=== PATIENT | female | born 1975 | race Caucasian/White ===

== ENCOUNTER 2017-03-13 15:12 | Inpatient (IN) | payer MEDICARE, OTHER ==
[~2017-03-13] VITALS: Ht 175.3 cm; Wt 112.7 kg
[~2017-03-13 15:12] MED LIST: ALPRAZOLAM1 M1 OR; AMBIEN10 MG OR; AMITRIPTYLIN25 MG PO; AMOXICILLIN500 MG OR; ANAPROX275 MG OR; ATIVAN1 MG PO; B-12 TR1000 MCG PO; BACTROBAN2 % EX; BENZTROPINE0.5 MG PO; BUSPAR5 MG PO; CIPRO500 MG OR; CYMBALTA60 MG PO; DILAUDID8 MG OR; FENOFIBRATE145 MG PO; FLEXERIL OR; FLEXERIL PO; GABAPENTIN100 MG PO; GABAPENTIN300 MG OR; GLIPIZIDE5 MG PO; KLONOPIN1 MG OR; LORTAB 10 OR; LORTAB 5-325 MG1 TAB PO; LORTAB5 OR; MEDDOSEPAK OR; MIRTAZAPINE15 MG PO; NAPROSYN500 MG PO; NEURONTIN300 MG OR; NORCO1 TAB OR; ORAJE1 MT; OXYCODONE15 MG OR; OXYCODONE30 MG OR; PERCOCET 10/31 COMBO PO; PREDNISONE10 MG PO; PROCTOFOAM HC10 GM RE; PROMETHAZINE25 MG OR; PROMETHAZINE50 MG OR; RESTORIL30 MG OR; SERAX10 MG OR; SEROQUEL100 MG OR; SEROQUEL100 MG PO; SEROQUEL25 MG OR; SEROQUEL50 MG OR; SOMA350 MG OR; TIZANIDINE4 MG OR; TOPROL XL OR; TOPROL XL25 MG OR; TRAZODONE100 MG OR; TRAZODONE150 MG OR; ULTRAM50 M1 OR; ULTRAM50 MG OR; VITAMIN D31000 UNI1 PO; XANAX XR1 MG OR; XANAX1 MG OR; ZANAFLEX4 M1 OR; ZANAFLEX4 MG OR; ZOLOFT50 MG OR; ZOLOFT50 MG PO; ZOVIRAX800 MG OR
[2017-03-14] VITALS (10 sets, daily range): BP systolic 121–149; BP diastolic 77–95
[2017-03-15] VITALS (8 sets, daily range): BP systolic 132–149; BP diastolic 68–91
[2017-03-15 06:34] LABS: HEMATOCRIT 39.2 % (37.0-47.0); HEMOGLOBIN 12.6 g/dl (12.0-16.0); IMMATURE GRANULOCYTES 0.8 % (0.0-1.0); MEAN CELL VOLUME 96.1 fL CALC (80.0-100.0); MEAN CORPUSCULAR HGB 30.9 pG CALC (26.0-32.0); MEAN CORPUSCULAR HGB CONC 32.1 g/L CALC (32.0-36.0); NEUT# 9.74 thou/uL (2.00-7.15); RED BLOOD COUNT 4.08 mill/uL (4.20-5.60)
[2017-03-15 08:15] LABS: ANION GAP 13 (6-22 (CALC)); BUN 10 mg/dL (7-17); BUN/CREATININE RATIO 13 (12-20 (CALC)); CALCIUM 8.1 mg/dL (8.4-10.2); CARBON DIOXIDE 26 mmol/l (22-30); CHLORIDE 101 mmol/l (95-108); CREATININE 0.8 mg/dL (0.5-1.0); GFR > 60 ML/MIN (>=60 (CALC)); GFR FOR AFR.AMER. > 60 ML/MIN (>=60 (CALC)); GLUCOSE 206 mg/dL (65-105); POTASSIUM 3.6 mmol/l (3.5-5.1); SODIUM 136 mmol/l (137-146)
[2017-03-16 04:00] VITALS: BP 135/80
[2017-03-16 05:26] LABS: HEMATOCRIT 33.3 % (37.0-47.0); HEMOGLOBIN 11.1 g/dl (12.0-16.0)
[2017-03-16 08:03] VITALS: BP 122/77
[2017-03-16] MEDS ORDERED: PERCOCET 10/31 COMBO PO (12:39)
[2017-03-16] MEDS ORDERED: XARELTO10 MG PO (12:39)
== END 2017-03-16 14:17 | disposition home health service (06) | DRG 470 ==
LOC: ENPENDDIS → MS2 03-14 11:47 → ICU 03-14 18:10 → MS2 03-15 19:05
PROVIDERS: Orthopaedic Surgery; ADMIT Internal Medicine; ATTEND Internal Medicine
PROC: 0SRC0J9 Replacement of Right Knee Joint with Synthetic Substitute, Cemented, Open Approach (ICD-10-PCS; principal; 2017-03-14)
PROC: 0QHB04Z Insertion of Internal Fixation Device into Right Lower Femur, Open Approach (ICD-10-PCS; 2017-03-14)
DX: M17.11 Unilateral primary osteoarthritis, right knee (principal); F32.9 Major depressive disorder, single episode, unspecified; M96.661 Fracture of femur following insertion of orthopedic implant, joint prosthesis, or bone plate, right leg; E11.9 Type 2 diabetes mellitus without complications; F17.210 Nicotine dependence, cigarettes, uncomplicated; E66.9 Obesity, unspecified; Y83.1 Surgical operation with implant of artificial internal device as the cause of abnormal reaction of the patient, or of later complication, without mention of misadventure at the time of the procedure; Y92.234 Operating room of hospital as the place of occurrence of the external cause; F41.9 Anxiety disorder, unspecified; E78.5 Hyperlipidemia, unspecified; J98.8 Other specified respiratory disorders; T40.2X5A Adverse effect of other opioids, initial encounter; T41.0X5A Adverse effect of inhaled anesthetics, initial encounter; Z68.35 Body mass index [BMI] 35.0-35.9, adult; Z01.818 Encounter for other preprocedural examination; M25.561 Pain in right knee
CPT/HCPCS: J1650; J2270; J2710

== ENCOUNTER 2017-06-11 22:32 | Emergency (ER) | payer MEDICARE, OTHER ==
[~2017-06-11] VITALS: Ht 175.3 cm; Wt 100.0 kg
[~2017-06-11 22:32] MED LIST changes: +XARELTO10 MG PO
[2017-06-11 23:33] LABS: HEMATOCRIT 38.3 % (37.0-47.0); HEMOGLOBIN 12.8 g/dl (12.0-16.0); IMMATURE GRANULOCYTES 0.5 % (0.0-1.0); MEAN CELL VOLUME 92.7 fL CALC (80.0-100.0); MEAN CORPUSCULAR HGB CONC 33.4 g/L CALC (32.0-36.0); NEUT# 6.83 thou/uL (2.00-7.15); RED BLOOD COUNT 4.13 mill/uL (4.20-5.60); RED CELL DISTRI WIDTH 14.6 % (11.5-15.5)
[2017-06-11 23:46] LABS: ALBUMIN 3.9 g/dL (3.2-5.0); ALKALINE PHOSPHATASE 71 u/l (38-126); ANION GAP 12 (6-22 (CALC)); BILIRUBIN, TOTAL 0.3 mg/dL (0.0-1.4); BUN 6 mg/dL (7-17); BUN/CREATININE RATIO 8 (12-20 (CALC)); CALCIUM 9.4 mg/dL (8.4-10.2); CARBON DIOXIDE 25 mmol/l (22-30); CHLORIDE 104 mmol/l (95-108); CREATININE 0.8 mg/dL (0.5-1.0); GFR > 60 ML/MIN (>=60 (CALC)); GFR FOR AFR.AMER. > 60 ML/MIN (>=60 (CALC)); GLUCOSE 86 mg/dL (65-105); POTASSIUM 3.5 mmol/l (3.5-5.1); SGOT/AST 20 u/l (14-36); SGPT/ALT 36 u/l (9-52); SODIUM 138 mmol/l (137-146); TOTAL PROTEIN 7.1 g/dL (6.3-8.2)
[2017-06-11] MEDS ORDERED: LISINOPRIL10 MG PO (23:56)
[2017-06-12] MEDS ORDERED: CEPHALEXIN500 MG PO (01:21)
[2017-06-12] MEDS ORDERED: LORTAB 10-325 M1 TAB PO (01:21)
[2017-06-12 01:47] VITALS: BP 138/79
== END 2017-06-12 01:44 | disposition home or self-care (01) ==
LOC: ED 22:32
PROVIDERS: Emergency Medicine
DX: S83.91XA Sprain of unspecified site of right knee, initial encounter (principal); F17.210 Nicotine dependence, cigarettes, uncomplicated; E11.9 Type 2 diabetes mellitus without complications; X58.XXXA Exposure to other specified factors, initial encounter; Z96.651 Presence of right artificial knee joint; M79.89 Other specified soft tissue disorders

== ENCOUNTER 2017-10-07 10:36 | Emergency (ER) | payer MEDICARE, OTHER ==
[~2017-10-07] VITALS: Ht 175.3 cm; Wt 100.0 kg
[~2017-10-07 10:36] MED LIST changes: +CEPHALEXIN500 MG PO; +LISINOPRIL10 MG PO; +LORTAB 10-325 M1 TAB PO
[2017-10-07] MEDS ORDERED: ZITHROMAX250 MG PO (11:23)
[2017-10-07] MEDS ORDERED: MOTRIN800 MG PO (11:23)
[2017-10-07 11:28] VITALS: BP 118/81
[2017-10-07] MEDS ORDERED: [UNRECOGNIZED DRUG - REMARK] PO (11:31)
== END 2017-10-07 11:35 | disposition home or self-care (01) ==
LOC: ED 10:36
DX: J40 Bronchitis, not specified as acute or chronic (principal); F17.210 Nicotine dependence, cigarettes, uncomplicated; R05 Cough; M54.9 Dorsalgia, unspecified; R09.89 Other specified symptoms and signs involving the circulatory and respiratory systems; R09.81 Nasal congestion

== ENCOUNTER 2019-03-25 09:38 | Day surgery (SDC) | payer MEDICARE, OTHER ==
[~2019-03-25 09:38] MED LIST changes: +CLONAZEP ODT1 MG PO; +CLONAZEPAM1 MG PO; +FLOVENT HF220 MCG/AC; +FOLIC ACID1 M1 PO; +FOLIC ACID1 MG PO; +GLIPIZIDE10 MG PO; +IMITREX25 MG PO; +MOBIC7.5 M1 PO; +MOTRIN800 MG PO; +PRAVASTATIN SOD20 MG PO; +PROAIR HFA108 MCG/AC; +TYLENOL325 M2; +VITAMIN B12; +VITAMIN D22000 UNIT PO; +ZITHROMAX250 MG PO; +[UNRECOGNIZED DRUG - REMARK] PO
[2019-03-25 10:22] LABS: BARBITURATES NEGATIVE (NEGATIVE); COCAINE NEGATIVE (NEGATIVE); METHADONE NEGATIVE (NEGATIVE); OXCYCODONE POSITIVE (NEGATIVE); TETRAHYDROCANNABIONOL POSITIVE (NEGATIVE); TRICYLIC ANTIDEPRESSANTS POSITIVE (NEGATIVE)
[2019-03-25 12:40] VITALS: BP 93/61
== END 2019-03-25 13:00 | disposition home or self-care (01) ==
LOC: ORM 09:38
PROVIDERS: ATTEND Surgery
PROC: 0JB70ZZ Excision of Back Subcutaneous Tissue and Fascia, Open Approach (ICD-10-PCS; principal; 2019-03-25)
PROC: 0JB70ZZ Excision of Back Subcutaneous Tissue and Fascia, Open Approach (ICD-10-PCS; 2019-03-25)
DX: D17.1 Benign lipomatous neoplasm of skin and subcutaneous tissue of trunk (principal); E11.9 Type 2 diabetes mellitus without complications; F17.210 Nicotine dependence, cigarettes, uncomplicated
CPT/HCPCS: J0131

== ENCOUNTER 2019-11-18 | Observation (INO) | payer MEDICARE, OTHER ==
--- NOTE | 2019-11-17 22:52 | NUR ---
BY WC TO ROOM
--- NOTE | 2019-11-17 23:25 | NUR ---
IV STARTED AND BREATHING TREATMENT STARTED. PT GIVEN SOLUMEDROL AND LABS AND FLU SWAB OBTAINED. PT C/O PAIN. NOTIFIED.
[2019-11-17 23:49] LABS: HEMATOCRIT 42.3 % (37.0-47.0); HEMOGLOBIN 14.4 g/dl (12.0-16.0); IMMATURE GRANULOCYTES 0.2 % (0.0-5.0); MEAN CELL VOLUME 86.7 fL CALC (80.0-100.0); MEAN CORPUSCULAR HGB 29.5 pG CALC (26.0-32.0); NEUT# 4.97 thou/uL (2.00-7.15); RED BLOOD COUNT 4.88 mill/uL (4.20-5.60); RED CELL DISTRI WIDTH 13.4 % (11.5-15.5)
[2019-11-18] LABS: HCG SERUM/URINE (NEG/POS) NEGATIVE (NEGATIVE)
[2019-11-18 00:02] LABS: ALBUMIN 3.7 g/dL (3.2-5.0); ALKALINE PHOSPHATASE 103 u/l (38-126); ANION GAP 14 (6-22 (CALC)); BILIRUBIN, TOTAL 0.3 mg/dL (0.0-1.4); BUN 12 mg/dL (7-17); BUN/CREATININE RATIO 21 (12-20 (CALC)); CARBON DIOXIDE 26 mmol/l (22-30); CHLORIDE 101 mmol/l (95-108); CREATININE 0.6 mg/dL (0.5-1.0); GFR > 60 ML/MIN (>=60 (CALC)); GFR FOR AFR.AMER. > 60 ML/MIN (>=60 (CALC)); POTASSIUM 3.7 mmol/l (3.5-5.1); SGOT/AST 18 u/l (14-36); SODIUM 137 mmol/l (137-146)
--- NOTE | 2019-11-18 01:33 | NUR ---
PT UP TO BR. RETURNED TO BED. ADVISED OF ADMISSION. FAMILY HOME. PT GIVEN ANOTHER BLANKET. LIGHTS DIMMED. 02 SAT 92% ON RA SO PT PLACED ON NC @ 2 LPM. SAT INCREASED TO 96% ON NC
--- NOTE | 2019-11-18 02:26 | NUR ---
PT RELOCATED TO ROOM # 15 FOR MED SURGE ADMIT HOLD
--- NOTE | 2019-11-18 04:00 | NUR ---
PT GIVEN TUSSINEX FOR COUGH. CRANBERRY JUICE AND H2O GIVEN TO PT FOR HYDRATION.
--- NOTE | 2019-11-18 05:15 | NUR ---
PT SLEEPING. RESP EASY REG. VSS.
[2019-11-18] MEDS ORDERED: AMBIEN10 MG PO (07:06)
--- NOTE | 2019-11-18 07:10 | NUR ---
REPORT FROM LEILANI LAWS. MS NURSE WILL CALL BACK FOR REPORT.
--- NOTE | 2019-11-18 07:30 | NUR ---
REPORT CALLED TO COMPA BOURNE.
--- NOTE | 2019-11-18 07:50 | NUR ---
Admission Note Report Given to: COMPA BOURNE Transported by: Wheelchair X Stretcher Transported with: X Nurse X Transporter X Patent IV O2 Sandblasting Supervisor PT TO ROOM 269, CARE RELINQUISHED TO COMPA BOURNE.
--- NOTE | 2019-11-18 07:55 | NUR ---
PT ARRIVED TO THE UNIT,. VIA BED. IV SITE INTACT. AT 0810 CAUGHT PT TAKING HER OWN MEDICATION. EXPLAINED ABOUT NOT TAKING HER OWN DUE TO OVER MEDICATING. VERBALIZED UNDERSTANDING. TOLD THIS CUSTOMER SERVICE ADMINISTRATOR "THE DR TOLD ME TO TAKE IT, AND HAD MY GO HOME AND BRING THEM BACK " CONTINUE TO OBSERVE AND MONITOR. SPOKE WITH ER STAFF RE: PT STATING " I WAS TOLD IT WAS OK TO TAKE [place] NEDS". WAS INFORMED THAT THE DR TOLD HER LAST NIGHT DUE TO BEING LATE, BUT NOT FOR THIS AM.
[2019-11-18 08:40] VITALS: BP 95/56
--- NOTE | 2019-11-18 08:40 | NUR ---
ASSESSMENT IS COMPLETED: PT IN BED, BREATH SOUNDS ARE CLEAR IN UPPER AND WHEEZING , HR IS REG,PULSES ARE STRONG X4, ABD IS SOFT WITH ACTIVE BS. IV SITE IS FREE FROM REDNESS OR EDEMA.
--- NOTE | 2019-11-18 12:44 | NUR ---
PT IS RELAXING IN BED, SPOUSE IN THE ROOM. IV SITE IS FREE FROM REDNESS OR EDEMA.
[2019-11-18 15:43] VITALS: BP 107/76
--- NOTE | 2019-11-18 17:45 | NUR ---
INSULIN GIVEN FOR BS OF 401 AND ALSO GAVE HER THE GLIPIZIDE PO. AND PT WAS ON THE PHONE HOLLERING AT A FAMILY MEMBER " I DON'T CARE IF THEY HAVE AN EMERGENCY,I DON'T WANT TO BE IN A DIABETIC COMA BECAUSE NO ONE IS DOING ANYTHING ABOUT IT. IF THEY KNEW THAT THE BREATHING TREATMENT AND SOLUMEDROL WAS GOING TO RAISE THIS THEN TAKE CARE OF IT BEFORE" APRIL (ADEN) WENT TO SPEAK TO THE PT DUE TO HER SCREAMING ON THE PHONE.
--- NOTE | 2019-11-18 18:27 | NUR ---
PT WANTED TO SIGN OUT IBAN UPSET BECAUSE OF THE WAY SHE WAS TALKED TO. EXPLAINED RE: IBAN WORKS THAT SHE WANTED TO LEAVE , AND WAS ABLE TO GIVE HER THE PHYSICIANS NAME AND WARD AIDE DUE TO ASKING FOR IT.
== END 2019-11-18 18:35 | disposition left against medical advice (07) ==
PROVIDERS: ADMIT Family Medicine
DX: J44.1 Chronic obstructive pulmonary disease with (acute) exacerbation (principal); J44.0 Chronic obstructive pulmonary disease with (acute) lower respiratory infection; J20.9 Acute bronchitis, unspecified; I10 Essential (primary) hypertension; E11.9 Type 2 diabetes mellitus without complications; F41.8 Other specified anxiety disorders; F43.10 Post-traumatic stress disorder, unspecified; E78.5 Hyperlipidemia, unspecified; F17.200 Nicotine dependence, unspecified, uncomplicated; Z79.84 Long term (current) use of oral hypoglycemic drugs; Z87.820 Personal history of traumatic brain injury
CPT/HCPCS: G0378; J1650

== ENCOUNTER 2020-07-23 11:26 | Emergency (ER) | payer MEDICARE, OTHER ==
[~2020-07-23] VITALS: Ht 175.3 cm; Wt 88.0 kg
[~2020-07-23 11:26] MED LIST changes: +AMBIEN10 MG PO
[2020-07-23] MEDS ORDERED: ATORVASTATIN CA20 MG PO (11:48)
[2020-07-23] MEDS ORDERED: DOXEPIN HCL25 MG PO (11:48)
[2020-07-23] MEDS ORDERED: VITAMIN B-121000 MCG PO (11:49)
[2020-07-23] MEDS ORDERED: VITAMIN D2000 UNIT PO (11:49)
[2020-07-23] MEDS ORDERED: GABAPENTIN300 M2 PO (11:49)
[2020-07-23] MEDS ORDERED: GENTAK0.32 OS (11:55)
[2020-07-23 12:00] VITALS: BP 132/86
== END 2020-07-23 12:00 | disposition home or self-care (01) ==
LOC: ED 11:26
DX: H10.9 Unspecified conjunctivitis (principal); H54.61 Unqualified visual loss, right eye, normal vision left eye; E11.9 Type 2 diabetes mellitus without complications; F17.210 Nicotine dependence, cigarettes, uncomplicated; Z79.84 Long term (current) use of oral hypoglycemic drugs

== ENCOUNTER 2020-08-12 15:05 | Observation (INO) | payer MEDICARE, OTHER ==
[~2020-08-12] VITALS: Ht 175.3 cm; Wt 82.4 kg
[~2020-08-12 15:05] MED LIST changes: +ATORVASTATIN CA20 MG PO; +DOXEPIN HCL25 MG PO; +GABAPENTIN300 M2 PO; +GENTAK0.32 OS; +VITAMIN B-121000 MCG PO; +VITAMIN D2000 UNIT PO
--- NOTE | 2020-08-12 15:06 | NUR ---
AMBULATED TO ROOM WITH STEADY GAIT FOR BEDSIDE TRIAGE
[2020-08-12 15:49] LABS: HEMATOCRIT 46.3 % (37.0-47.0); HEMOGLOBIN 15.7 g/dl (12.0-16.0); IMMATURE GRANULOCYTES 0.3 % (0.0-5.0); MEAN CELL VOLUME 86.2 fL CALC (80.0-100.0); MEAN CORPUSCULAR HGB 29.2 pG CALC (26.0-32.0); MEAN CORPUSCULAR HGB CONC 33.9 g/dL CAL (32.0-36.0); NEUT# 10.14 thou/uL (2.00-7.15); RED BLOOD COUNT 5.37 mill/uL (4.20-5.60); RED CELL DISTRI WIDTH 13.1 % (11.5-15.5)
[2020-08-12 15:51] LABS: GFR > 60 ML/MIN (>=60 (CALC)); GFR FOR AFR.AMER. > 60 ML/MIN (>=60 (CALC))
[2020-08-12 16:17] LABS: C-REACTIVE PROTEIN 2.7 mg/dL (0-0.9)
--- NOTE | 2020-08-12 16:18 | NUR ---
The patient is waiting for her results and possible admission.
[2020-08-12 16:32] LABS: ALKALINE PHOSPHATASE 133 u/l (38-126); ANION GAP 16 (6-22 (CALC)); BUN 14 mg/dL (7-17); BUN/CREATININE RATIO 20 (12-20 (CALC)); CARBON DIOXIDE 22 mmol/l (22-30); CHLORIDE 100 mmol/l (95-108); CREATININE 0.7 mg/dL (0.5-1.0); GFR > 60 ML/MIN (>=60 (CALC)); GFR FOR AFR.AMER. > 60 ML/MIN (>=60 (CALC)); POTASSIUM 3.8 mmol/l (3.5-5.1); SGOT/AST 25 u/l (14-36); SODIUM 135 mmol/l (137-146); TOTAL PROTEIN 8.1 g/dL (6.3-8.2)
[2020-08-12 16:39] LABS: ALBUMIN 4.5 g/dL (3.2-5.0); BILIRUBIN, TOTAL 0.5 mg/dL (0.0-1.4)
--- NOTE | 2020-08-12 16:50 | NUR ---
The patient has blood transfusing, he is not having any issues.
--- NOTE | 2020-08-12 17:43 | NUR ---
Report given to Nell.
--- NOTE | 2020-08-12 18:00 | NUR ---
PT ARRIVED TO [facility] ROOM 272 VIA WHEELCHAIR IN STABLE CONDITION ACCOMPAINED BY ER STAFF. PT AMBULATED IN WITH STEADY GAIT FROM WHEELCHAIR TO BED. PT IS A/O X3 . ASSESSMENT AND VITALS COMPLETED. RESPIRATIONS ARE EVEN AND UNLABORED WITH NO SIGNS OF DISTRESS NOTED ON 2L NC. LUNG SOUND SARE COURSE.PT PRESENTS WITH NON PRODUCTIVE COUGH. HEART RHYTHM IS NORMAL WITH TELE IN PLACE. BOWEL SOUNDS ARE HYPOACTIVE, LAST REPORTED BM 08/12/20. RADIAL AND PEDAL PULSES ARE STRONG WITH NORMAL CAPILLARY REFILL. #20 IN RAC RUNNING WITH GAMINSIDE AT THIS TIME. SITE APPEARS HEALTHY AND PATENT. PT COMPLAINS OF 5/10 MID ABCK PAIN. ACCUCHECK OBTAINED RESUTLING IN 114. PT INFORMS WRITTER OFF ALLERGY TO BEE VENOM, METFORMIN AND ASPIRING, ALLERGY BAND APPLIED. PT STATES SHE CAME TO ER FOR SOB AND EAR ACHE. PT ORIENTED TO ROOM AND CALL LIGHT SYSTEM. ALL SAFETY PRECAUTIONS ARE IN PLACE WITH CALL LIGHT IN REACH. WILL CONTINUE TO MONITOR,
[2020-08-12 18:22] LABS: URINE BILIRUBIN - DIPSTICK NEGATIVE (NEGATIVE); URINE BLOOD DIPSTICK SMALL (NEGATIVE); URINE COLOR YELLOW; URINE GLUCOSE - DIPSTICK NEGATIVE (NEGATIVE); URINE KETONE NEGATIVE (NEGATIVE); URINE LEUK ESTERASE NEGATIVE (NEGATIVE); URINE NITRITE - DIPSTICK NEGATIVE (Negative); URINE PROTEIN - DIPSTICK NEGATIVE (NEG-TRACE); URINE SPECIFIC GRAVITY 1.015; URINE UROBILINOGEN - DIPSTICK 0.2 E.U./dL (0.2)
[2020-08-12 18:30] VITALS: BP 113/78
[2020-08-12 18:35] LABS: URINE MUCUS FEW hpf (NONE-FEW); URINE SQUAMOUS EPITHELIAL CELL FEW EPI/hpf (0-FEW)
--- NOTE | 2020-08-12 20:00 | NUR ---
PATIENT ALERT, VERBAL, ABLE TO MAKE NEEDS KNOWN. ABLE TO TOLERATE MEDS WELL WHOLE. CONT OF BOWEL AND BLADDER--ABLE TO AMBULATE TO AND FROM BR IN ROOM INDEPENDENTLY. OUT OF BED DAILY IN ROOM AD MAGALIS. REQUESTED PAIN MEDS FOR C/OS MID TO LOWER BACK PAIN--NOTHING ORDERED--CALL PLACED TO MD--NEW ORDERS FOR TORADOL 15G IV Q 8 HOURS PRN--GIVEN @ HS WITH POSITIVE EFFECT. PATIENT DOES HAVE ALLERGY TO ASA--MD IS AWARE AND IN AGREEMENT WITH CURRENT MEDICATION. TELEMETRY IN PLACE--SR @ 96. PIV SITE PATENT TO RIGHT AC--FLUSHES WELL--SITE WITHOUT ANY S/S OF INFECTION NOTED. CONT ON IV ABT THERAPY RELATED TO SUSPECTED INFECTION WITH NO SIDE EFFECTS NOTED--AFEBRILE. O2 @ 2L/MIN BN--NO S/S OF RESP DISTRESS NOTED--HAS A NON-PRODUCTIVE CONGESTED COUGH. WILL CONT TO MONITOR FOR ANY FURTHER CHANGES.
--- NOTE | 2020-08-13 | NUR ---
PATIENT EXTREMELY RESTLESS SINCE LAST ROUNDING--STATES HE SLEEPING PILL ISNT WORKING--THIS FROG SHAKER TRIED RELAXATION TECHNIQUES--DIMMING THE LIGHTS--PERSUADING HER TO TURN THE TV OFF AND PUT HER PHONE DOWN--PATIENT DID FALL ASLEEP FOR APPROX 2 HOURS--THEN WAS BACK AWAKE--NO DISTRESS--QUESTIONING ABOUT HER LABS AND WHAT THE VALUES MAY OR MAY NOT MEAN FOR HER STAY HERE. ENCOURGAED PATIENT TO RELAX AND GET SOME REST AND SHE COULD SPEAK WITH HER MD IN THE AM TO FURTHER ANSWER HER QUESTIONS. PIV SITE PATENT TO RIGHT AC--FLUSHES WELL--SITE UNREMARKABLE. REMAINS AFEBRILE--CONT TO HAVE A NON-PRODUCTIVE CONGESTED COUGH--OTHERWISE HAS NO COMPLAINTS. WILL CONT TO MONITOR FOR AND FURTHER CHANGES AND PROMOTE RELAXATION MUCH POSSIBLE.
[2020-08-13 00:20] VITALS: BP 93/63
--- NOTE | 2020-08-13 00:31 | NUR ---
UPON ROUNDS AT THIS TIME, PATIENT STATES SHE IS HAVING HEART PALPITATIONS AND THINKS IT MAY BE HER ANXIETY--SHE STATES SHE USED TO SEE A PSYCHIATRIST, HOWEVER, HASNT SEEN ONE IN THE LAST FOUR YEARS--ALSO STATES SHE USED TO TAKE "KLONOPIN 1MG FOUR TIMES A DAY." B/P 93/63 P 100--CALL PLACED TO DERAY TO SEE IF MAYBE HE WANTS LABS TO R/O ANYTHING CARDIAC OR TO PLACE HER ON SOMETHING FOR HER ANXIETY--AWAITING RETURN CALL AT THIS [facility].
[2020-08-13 03:57] VITALS: BP 107/66
--- NOTE | 2020-08-13 04:00 | NUR ---
PATIENT RESTING SOUNDLY IN BED WITH EYES CLOSED AT THIS TIME. B/P 107/67 P 97--VOICES NO EPISODES OF ANXIETY--HAS BEEN SLEEPING WELL SINCE LAST ROUND. CALL BACK NEVER RECEIVED FROM MD--WILL F/U LATER IN THE AM FOR FURTHER INSTRUCTIONS. TELEMETRY IN PLACE--SINUS RHYTHM @ 92. PIV SITE PATENT TO RIGHT AC--FLUSHES WELL--SITE UNREMARKABLE. REMAINS AFEBRILE. NO APPARENT DISTRESS NOTED. WILL CONT TO MONITOR FOR ANY FURTHER CHANGES.
--- NOTE | 2020-08-13 05:30 | NUR ---
CALLED TO PATIENT ROOM BY BINU WHO STATES SHE WOKE UP AND THE ROOM IS SPINNING--PATIENT IS TEARFUL AND EXTREMELY ANXIOUS AT THIS POINT. ATTEMPTED TO CALL MD ONCE AGAIN TO OBTAIN FURTHER INSTRUCTIONS--THIS FACILITIES DIRECTOR WAS ABLE TO REACH MD--NEW ORDERS FOR ATIVAN 0.5MG PO TIMES 1 NOW--MAY REPEAT IN ONE HOUR IF NEEDED--ALSO SPOKE WITH MD ABOUT THE FACT THAT PATIENT HAS A HISTORY OF DIABETES YET NO ORDERS FOR SSI INSULIN OF ACCUCHECKS AT ANY TIME--NEW ORDERS FOR FSBS QID WITH LOW DOSE SLIDING SCALE GIVEN WELL. WILL CONT TO MONITOR FOR ANY FURTHER CHANGES.
--- NOTE | 2020-08-13 07:00 | NUR ---
SHIFT CHANGE REPORT, PT AWAKE ALERT AND ORIENTED RESTING IN BED, C/O ACHING BACK PAIN @ 8/10, O2 @ 2L VIA NC IN PLACE, TELEMONITOR IN PLACE, ALL NEEDS ADDRESSED, CALL MYERS IN REACH.
[2020-08-13 08:16] VITALS: BP 101/66
[2020-08-13 10:57] VITALS: BP 112/75
--- NOTE | 2020-08-13 11:01 | NUR ---
NEB TX NOT GIVEN PENDING COVID SWAB TEST RESULTS.
--- NOTE | 2020-08-13 11:18 | NUR ---
MEDICAL TEAM ROUNDED, DISCUSSED PLAN OF CARE AND WROTE ORDERS. PT CONCERNED ABOUT HAVING A PANIC ATTACK STATING SHE HAD ONE THIS AM, DEBURRER NOTIFIED AND STATED HE WILL ADDRESS CONCERNS.
[2020-08-13 15:10] VITALS: BP 115/77
--- NOTE | 2020-08-13 15:58 | NUR ---
RELAXING IN BED WATCHING TV, C/O HEARTBURN AND INFORMED WILL NOTIFY MD OF CONCERN, ALL OTHER NEEDS ADDRESSED, WILL CONTINUE TO MONITOR.
[2020-08-13 19:23] VITALS: BP 123/81
--- NOTE | 2020-08-13 19:28 | NUR ---
REPORT FROM TIANA DUKE. PT NOTED SITTING UP IN BED. ALERT AND ORIENTED X4. PT VERY ANXIOUS WITH RAPID SHALLOW RESPIRATIONS NOTED. 02 SAT 96% ON RA. PT ENCOURAGED TO DEEP BREATH AND RELAXATION TECHNIQUES OFFERED, EFFECTIVE AT THIS TIME. INHALER PROVIDED BY OFF GOING NURSE JUST PRIOR TO ENTERING ROOM. PT STATES WAS JUST OOB AMBULATING IN ROOM TO BATHROOM AND BECAME SOB. PT MORE CALM AT THIS TIME. DISCUSSED POC. PT VERBALIZED UNDERSTANDING. IV SITE APPEARS HEALTHY, REINFORCED WITH COBAN AT THIS TIME. DAIRY NUTRITION CONSULTANT IN PLACE. NO CURRENT WANTS OR NEEDS. CALL LIGHT WITHIN REACH. WILL CONTINUE TO MONITOR.
--- NOTE | 2020-08-13 20:03 | NUR ---
FOOD AND SODA DELIVERED BY VISITOR TO PT AT THIS TIME.
[2020-08-14 00:09] VITALS: BP 115/72
--- NOTE | 2020-08-14 00:09 | NUR ---
PT RESTING IN BED WITH EYES CLOSED. NO APPARENT DISTRESS NOTED. RESPIRATIONS EVEN AND UNLABORED. VSS. ENDOCRINOLOGY TEACHER IN PLACE. CALL LIGHT WITHIN REACH. WILL CONTINUE TO MONITOR.
--- NOTE | 2020-08-14 04:31 | NUR ---
PT MEDICATED FOR BACK PAIN 5-10. NO APPARENT RESPIRATORY DISTRESS NOTED. RESPIRATION EVEN AND UNLABORED. NO OTHER CURRENT WANTS OR NEEDS. CALL LIGHT WITHIN REACH. WILL CONTINUE TO MONITOR.
[2020-08-14 04:56] LABS: MEAN CELL VOLUME 87.5 fL CALC (80.0-100.0); MEAN CORPUSCULAR HGB 28.9 pG CALC (26.0-32.0); RED BLOOD COUNT 4.4 mill/uL (4.20-5.60)
[2020-08-14 04:59] VITALS: BP 110/72
[2020-08-14 05:03] LABS: HEMATOCRIT 38.5 % (37.0-47.0); HEMOGLOBIN 12.7 g/dl (12.0-16.0)
[2020-08-14 05:16] LABS: ALBUMIN 3.7 g/dL (3.2-5.0); ALKALINE PHOSPHATASE 110 u/l (38-126); BUN 23 mg/dL (7-17); BUN/CREATININE RATIO 37 (12-20 (CALC)); CHLORIDE 98 mmol/l (95-108); CREATININE 0.6 mg/dL (0.5-1.0); GFR > 60 ML/MIN (>=60 (CALC)); GFR FOR AFR.AMER. > 60 ML/MIN (>=60 (CALC)); MAGNESIUM 1.7 mg/dL (1.6-2.3); SGOT/AST 13 u/l (14-36); SODIUM 133 mmol/l (137-146)
[2020-08-14 05:45] LABS: ANION GAP 12 (6-22 (CALC)); BILIRUBIN, TOTAL 0.2 mg/dL (0.0-1.4); CARBON DIOXIDE 28 mmol/l (22-30); POTASSIUM 4.7 mmol/l (3.5-5.1); TOTAL PROTEIN 6.4 g/dL (6.3-8.2)
--- NOTE | 2020-08-14 07:05 | NUR ---
REPORT RECEIVED FROM COMPA BURRELL;PT APPEARS TO BE SLEEPING IN SEMI FOWLERS POSITION;NO S/S OF DISTRESS NOTED;RESPIRATIONS EVEN AND UNLABORED ON RA;TELE MONITORING IN PLACE;ALL SAFETY PRECAUTIONS REMAIN IN PLACE WITH BED IN THE LOWEST POSITION AND CALL LIGHT IN REACH;WILL CONTINUE TO MONITOR
[2020-08-14 08:14] VITALS: BP 120/74
--- NOTE | 2020-08-14 08:15 | NUR ---
PT RESTING IN SEMI FOWLERS POSITION,A&O X3;VS OBTAINED AND ASSESSMENT COMPLETED;PT DENIES ANY CURRENT PAIN OR DISCOMFORTS,PAIN SCALE AND REPORTING EDUCATED;RESPIRATIONS SHALLOW ON RA,CLEAR/DIMINISHED LUNG SOUNDS;EXERTIONAL SOB NOTED AT TIMES;ABDOMEN SOFT ON PALPATION AND ACTIVE IN ALL 4 QUADRANTS;STONG PEDAL PULSES;SKIN INTACT;TELE MONITORING IN PLACE;#20G TO RAC FLUSHED AND PATENT,SITE APPEARS HEALTHY AND ABX STARTED AT THIS TIME;ACCUCHECK 366, PT COVERED WITH SLIDING SCALE NOVOLOG PER ORDER;PT DENIES ANY ADDITIONAL NEEDS AT THIS TIME AND IS ENCOURAGED TO CALL FOR ASSISTANCE IF NEEDED;FALL PRECAUTIONS IN PLACE WITH BED IN THE LOWEST POSITION AND CALL LIGHT IN REACH;WILL CONTINUE TO MONITOR
--- NOTE | 2020-08-14 08:49 | NUR ---
AT BEDSIDE DISCUSSING POC WITH PT.
[2020-08-14] MEDS ORDERED: PROAIR HFA108 MCG/AC IN (09:41)
[2020-08-14] MEDS ORDERED: FLOVENT HF220 MCG/AC IN (09:43)
[2020-08-14] MEDS ORDERED: MEDDOSEPAK PO (09:52)
[2020-08-14] MEDS ORDERED: ZITHROMAX Z-PA250 MG PO (09:52)
--- NOTE | 2020-08-14 10:20 | NUR ---
ALL DISCHARGE INSTRUCTIONS PROVIDED AT THIS TIME;PT INSTRUCTED TO CAR DROPPER RX FOR ZITHRO AND PREDNISONE AT PHARMACY;COMPLETE DOSE OF STEROIDS AND ABX,STOP SMOKING,MONITOR BLOOD SUGAR AND FOLLOW UP WITH PCP TODAY;PT VERBALIZES UNDERSTANDING AND DENIES ANY ADDITIONAL QUESTIONS OR NEEDS;IV SITE REMOVED WITH CATHETER INTACT AND TELE MONITORING D/C;WHEELCHAIR TO BE PROVIDED FOR D/C HOME;PT TO TRANSPORT SELF HOME;WILL CONTINUE TO MONITOR
--- NOTE | 2020-08-14 10:41 | NUR ---
Discharge instructions given. Patient verbalizes understanding of same. Discharged in stable condition via AMBULATION to Home with *Other. All belongings sent with pt. [facility]/C HOME, PT REFUSED WHEELCHAIR.ALL BELONGINGS LEFT WITH PT.PT TO TRANSPORT SELF HOME.
== END 2020-08-14 10:41 | disposition home or self-care (01) ==
LOC: ED 15:05 → ED-I 16:41 → ED 17:04 → MS2 17:05
PROVIDERS: Family Medicine; Nurse Practitioner; ADMIT Internal Medicine; ATTEND Internal Medicine
DX: J44.1 Chronic obstructive pulmonary disease with (acute) exacerbation (principal); E87.2 Acidosis; D72.829 Elevated white blood cell count, unspecified; H92.13 Otorrhea, bilateral; E11.65 Type 2 diabetes mellitus with hyperglycemia; E11.40 Type 2 diabetes mellitus with diabetic neuropathy, unspecified; F41.9 Anxiety disorder, unspecified; F32.9 Major depressive disorder, single episode, unspecified; F43.10 Post-traumatic stress disorder, unspecified; E78.5 Hyperlipidemia, unspecified; F17.210 Nicotine dependence, cigarettes, uncomplicated; Z79.84 Long term (current) use of oral hypoglycemic drugs; Z87.820 Personal history of traumatic brain injury; Z20.828 Contact with and (suspected) exposure to other viral communicable diseases
CPT/HCPCS: A4627; G0378; J1650; Q9967

== ENCOUNTER 2021-01-30 14:10 | Emergency (ER) | payer MEDICARE, OTHER ==
[~2021-01-30] VITALS: Ht 175.3 cm; Wt 85.0 kg
[~2021-01-30 14:10] MED LIST changes: +FLOVENT HF220 MCG/AC IN; +MEDDOSEPAK PO; +PROAIR HFA108 MCG/AC IN; +ZITHROMAX Z-PA250 MG PO
[2021-01-30] MEDS ORDERED: ANXIETY (14:34)
[2021-01-30 14:35] LABS: HEMATOCRIT 43.1 % (37.0-47.0); IMMATURE GRANULOCYTES 0.2 % (0.0-5.0); MEAN CELL VOLUME 84.5 fL CALC (80.0-100.0); MEAN CORPUSCULAR HGB CONC 34.3 g/dL CAL (32.0-36.0); NEUT# 7.49 thou/uL (2.00-7.15); RED BLOOD COUNT 5.1 mill/uL (4.20-5.60)
[2021-01-30] MEDS ORDERED: NOVOLIN N100 UNIT/1 SC (14:35)
[2021-01-30 14:37] LABS: HEMOGLOBIN 14.8 g/dl (12.0-16.0)
[2021-01-30 15:09] LABS: URINE BILIRUBIN - DIPSTICK NEGATIVE (NEGATIVE); URINE BLOOD DIPSTICK TRACE-LYSED (NEGATIVE); URINE COLOR YELLOW; URINE GLUCOSE - DIPSTICK NEGATIVE (NEGATIVE); URINE KETONE NEGATIVE (NEGATIVE); URINE LEUK ESTERASE NEGATIVE (NEGATIVE); URINE NITRITE - DIPSTICK NEGATIVE (Negative); URINE PH 6.5 (4.5-8.0); URINE PROTEIN - DIPSTICK NEGATIVE (NEG-TRACE); URINE UROBILINOGEN - DIPSTICK 0.2 E.U./dL (0.2)
[2021-01-30 15:10] LABS: ALBUMIN 4.4 g/dL (3.2-5.0); ALKALINE PHOSPHATASE 123 u/l (38-126); BUN 12 mg/dL (7-17); BUN/CREATININE RATIO 17 (12-20 (CALC)); CARBON DIOXIDE 28 mmol/l (22-30); CHLORIDE 99 mmol/l (95-108); CREATININE 0.7 mg/dL (0.5-1.0); GFR > 60 ML/MIN (>=60 (CALC)); GFR FOR AFR.AMER. > 60 ML/MIN (>=60 (CALC)); SGOT/AST 18 u/l (14-36); SODIUM 138 mmol/l (137-146); TOTAL PROTEIN 7.6 g/dL (6.3-8.2)
[2021-01-30 15:15] LABS: ANION GAP 14 (6-22 (CALC)); BILIRUBIN, TOTAL 0.6 mg/dL (0.0-1.4)
[2021-01-30 15:23] LABS: MYOGLOBIN 20 ng/mL (0 - 62)
[2021-01-30 17:02] VITALS: BP 124/80
== END 2021-01-30 17:34 | disposition home or self-care (01) ==
LOC: ED 14:10
PROVIDERS: Emergency Medicine
DX: I49.3 Ventricular premature depolarization (principal); E87.6 Hypokalemia; F41.9 Anxiety disorder, unspecified; E11.9 Type 2 diabetes mellitus without complications; F17.200 Nicotine dependence, unspecified, uncomplicated; Z79.4 Long term (current) use of insulin
CPT/HCPCS: J2060; Q9967

== ENCOUNTER 2021-03-25 20:45 | Emergency (ER) | payer MEDICARE, OTHER ==
[~2021-03-25 20:45] MED LIST changes: +ANXIETY; +NOVOLIN N100 UNIT/1 SC
[2021-03-25] MEDS ORDERED: TORADOL PO (22:54)
[2021-03-25 23:40] VITALS: BP 120/89
== END 2021-03-25 23:40 | disposition home or self-care (01) ==
LOC: ED 20:45
DX: M67.814 Other specified disorders of tendon, left shoulder (principal); E11.9 Type 2 diabetes mellitus without complications; F17.210 Nicotine dependence, cigarettes, uncomplicated; Z79.4 Long term (current) use of insulin

== ENCOUNTER 2021-12-25 08:27 | Day surgery (SDC) | payer MEDICARE, OTHER ==
[~2021-12-25 08:27] MED LIST changes: +LIPITOR20 M1 PO; +MELATONIN10 MG PO; +METOPROL TAR25 M1 PO; +NOVOLIN 70/30 F1 IN1 SC; +TORADOL PO; +VITAMIN D2000 UNI3 PO
[2021-12-25] MEDS ORDERED: PERCOCET 5/321 COMBO PO (10:40)
[2021-12-25 11:02] VITALS: BP 106/57
[2021-12-27] MEDS ORDERED: TRAMADOL HCL50 MG PO (14:46)
== END 2021-12-25 11:10 | disposition home or self-care (01) ==
LOC: ORM 08:27
PROVIDERS: ATTEND Surgery
PROC: 0JB70ZZ Excision of Back Subcutaneous Tissue and Fascia, Open Approach (ICD-10-PCS; principal; 2021-12-25)
DX: D17.1 Benign lipomatous neoplasm of skin and subcutaneous tissue of trunk (principal); E11.9 Type 2 diabetes mellitus without complications; I10 Essential (primary) hypertension; F31.9 Bipolar disorder, unspecified; K21.9 Gastro-esophageal reflux disease without esophagitis; F17.200 Nicotine dependence, unspecified, uncomplicated; Z79.4 Long term (current) use of insulin
CPT/HCPCS: J0131

== ENCOUNTER 2022-05-05 21:49 | Emergency (ER) | payer MEDICARE, OTHER ==
[~2022-05-05] VITALS: Ht 175.3 cm; Wt 77.9 kg
[~2022-05-05 21:49] MED LIST changes: +PERCOCET 5/321 COMBO PO; +TRAMADOL HCL50 MG PO
[2022-05-05 21:59] VITALS: BP 118/95
[2022-05-05 22:00] VITALS: BP 124/90
[2022-05-05 22:02] VITALS: BP 136/87
[2022-05-05 22:15] VITALS: BP 118/91
[2022-05-05 22:30] VITALS: BP 112/83
[2022-05-05 22:40] LABS: HEMATOCRIT 45.4 % (37.0-47.0); HEMOGLOBIN 15.6 g/dl (12.0-16.0); IMMATURE GRANULOCYTES 0.3 % (0.0-5.0); MEAN CORPUSCULAR HGB 30.9 pG CALC (26.0-32.0); MEAN CORPUSCULAR HGB CONC 34.4 g/dL CAL (32.0-36.0); NEUT# 12.48 thou/uL (2.00-7.15); RED BLOOD COUNT 5.05 mill/uL (4.20-5.60); RED CELL DISTRI WIDTH 12.9 % (11.5-15.5)
[2022-05-05 22:41] LABS: ALBUMIN 4.3 g/dL (3.2-5.0); ALKALINE PHOSPHATASE 136 u/l (38-126); BUN 10 mg/dL (7-17); BUN/CREATININE RATIO 14 (12-20 (CALC)); CHLORIDE 106 mmol/l (95-108); CREATININE 0.7 mg/dL (0.5-1.0); GFR FOR AFR.AMER. > 60 ML/MIN (>=60 (CALC)); GFR OTHER RACES > 60 ML/MIN (>=60 (CALC)); MEAN CELL VOLUME 89.9 fL CALC (80.0-100.0); SGOT/AST 19 u/l (14-36); SODIUM 137 mmol/l (137-146); TOTAL PROTEIN 8.1 g/dL (6.3-8.2)
[2022-05-05 22:50] LABS: ANION GAP 13 (6-22 (CALC)); BILIRUBIN, TOTAL 0.3 mg/dL (0.0-1.4); CARBON DIOXIDE 22 mmol/l (22-30); POTASSIUM 3.8 mmol/l (3.5-5.1)
[2022-05-05 22:53] LABS: MYOGLOBIN 28 ng/mL (0 - 62)
[2022-05-05 23:11] VITALS: BP 103/77
[2022-05-05 23:31] LABS: URINE BILIRUBIN - DIPSTICK NEGATIVE (NEGATIVE); URINE BLOOD DIPSTICK NEGATIVE (NEGATIVE); URINE COLOR YELLOW; URINE GLUCOSE - DIPSTICK NEGATIVE (NEGATIVE); URINE KETONE NEGATIVE (NEGATIVE); URINE LEUK ESTERASE TRACE (NEGATIVE); URINE PH 5.5 (4.5-8.0); URINE PROTEIN - DIPSTICK NEGATIVE (NEG-TRACE); URINE SPECIFIC GRAVITY <=1.005; URINE UROBILINOGEN - DIPSTICK 0.2 E.U./dL (0.2)
[2022-05-05 23:34] LABS: URINE NITRITE - DIPSTICK NEGATIVE (Negative)
[2022-05-06 00:34] VITALS: BP 104/83
[2022-05-06 01:30] VITALS: BP 110/83
[2022-05-06] MEDS ORDERED: NAPROXEN500 MG PO (01:36)
[2022-05-06 01:40] VITALS: BP 110/83
== END 2022-05-06 01:40 | disposition home or self-care (01) ==
LOC: ED 21:49
PROVIDERS: Emergency Medicine
DX: M79.7 Fibromyalgia (principal); E11.9 Type 2 diabetes mellitus without complications; J44.9 Chronic obstructive pulmonary disease, unspecified; F17.200 Nicotine dependence, unspecified, uncomplicated; Z20.822 Contact with and (suspected) exposure to COVID-19; R07.89 Other chest pain
CPT/HCPCS: Q9967

== ENCOUNTER 2023-05-01 14:05 | Emergency (ER) | payer MEDICARE, OTHER ==
[~2023-05-01] VITALS: Ht 175.3 cm; Wt 82.6 kg
[~2023-05-01 14:05] MED LIST changes: +KLONOPIN1 MG PO; +NAPROXEN500 MG PO
[2023-05-01 16:53] VITALS: BP 108/74
[2023-05-01] MEDS ORDERED: PERCOCET 5/325M1 TAB PO (17:06)
[2023-05-02] MEDS ORDERED: VENTOLIN HFA108 MCG IN (07:55)
[2023-05-02] MEDS ORDERED: FLUVOXAMINE100 MG PO (07:57)
[2023-05-02] MEDS ORDERED: ARIPIPRAZOLE5 MG PO (07:58)
[2023-05-02] MEDS ORDERED: BUPROPION HCL150 MG PO (07:59)
== END 2023-05-01 17:16 | disposition home or self-care (01) ==
LOC: ED 14:05
DX: S32.10XA Unspecified fracture of sacrum, initial encounter for closed fracture (principal); S32.2XXA Fracture of coccyx, initial encounter for closed fracture; E11.9 Type 2 diabetes mellitus without complications; F17.210 Nicotine dependence, cigarettes, uncomplicated; W10.9XXA Fall (on) (from) unspecified stairs and steps, initial encounter; Y92.009 Unspecified place in unspecified non-institutional (private) residence as the place of occurrence of the external cause; Z79.4 Long term (current) use of insulin

== ENCOUNTER 2023-05-06 08:07 | Day surgery (SDC) | payer MEDICARE, OTHER ==
[~2023-05-06] VITALS: Ht 175.3 cm; Wt 72.6 kg
[~2023-05-06 08:07] MED LIST changes: +ARIPIPRAZOLE5 MG PO; +BUPROPION HCL150 MG PO; +FLUVOXAMINE100 MG PO; +PERCOCET 5/325M1 TAB PO; +VENTOLIN HFA108 MCG IN
[2023-05-06] MEDS ORDERED: PERCOCET 5/325M1 TAB PO (11:14)
[2023-05-06 12:10] VITALS: BP 108/84
== END 2023-05-06 12:00 | disposition home or self-care (01) ==
LOC: ORM 08:07
PROVIDERS: ATTEND Surgery
PROC: 0JB70ZZ Excision of Back Subcutaneous Tissue and Fascia, Open Approach (ICD-10-PCS; principal; 2023-05-06)
DX: D17.1 Benign lipomatous neoplasm of skin and subcutaneous tissue of trunk (principal); E11.9 Type 2 diabetes mellitus without complications; I10 Essential (primary) hypertension; F31.9 Bipolar disorder, unspecified; K21.9 Gastro-esophageal reflux disease without esophagitis; M79.7 Fibromyalgia; Z79.4 Long term (current) use of insulin; T81.31XA Disruption of external operation (surgical) wound, not elsewhere classified, initial encounter; L76.21 Postprocedural hemorrhage of skin and subcutaneous tissue following a dermatologic procedure; Y83.8 Other surgical procedures as the cause of abnormal reaction of the patient, or of later complication, without mention of misadventure at the time of the procedure; F17.200 Nicotine dependence, unspecified, uncomplicated
CPT/HCPCS: J0690

== ENCOUNTER 2023-05-06 17:25 | Emergency (ER) | payer MEDICARE, OTHER ==
[~2023-05-06] VITALS: Ht 175.3 cm; Wt 81.6 kg
[2023-05-06 17:34] VITALS: BP 107/77
[2023-05-06 18:00] VITALS: BP 99/73
[2023-05-06 18:30] VITALS: BP 94/68
== END 2023-05-06 18:30 | disposition home or self-care (01) ==
LOC: ED 17:25
DX: L76.21 Postprocedural hemorrhage of skin and subcutaneous tissue following a dermatologic procedure (principal); Y83.8 Other surgical procedures as the cause of abnormal reaction of the patient, or of later complication, without mention of misadventure at the time of the procedure; E11.9 Type 2 diabetes mellitus without complications; F17.200 Nicotine dependence, unspecified, uncomplicated; Z79.4 Long term (current) use of insulin

== ENCOUNTER 2023-05-11 19:20 | Emergency (ER) | payer MEDICARE, OTHER ==
[~2023-05-11] VITALS: Ht 175.3 cm; Wt 160.0 kg
[2023-05-11] MEDS ORDERED: BACTRIM DS1 TAB PO (19:44)
[2023-05-11 20:00] VITALS: BP 107/83
== END 2023-05-11 20:26 | disposition home or self-care (01) ==
LOC: ED 19:20
DX: T81.41XA Infection following a procedure, superficial incisional surgical site, initial encounter (principal); E11.9 Type 2 diabetes mellitus without complications; F17.210 Nicotine dependence, cigarettes, uncomplicated; Y83.8 Other surgical procedures as the cause of abnormal reaction of the patient, or of later complication, without mention of misadventure at the time of the procedure; Z79.4 Long term (current) use of insulin

== ENCOUNTER 2024-05-22 15:48 | Emergency (ER) | payer MEDICARE, OTHER ==
[~2024-05-22] VITALS: Ht 175.3 cm; Wt 69.8 kg
[2024-05-22] VITALS (25 sets, daily range): BP systolic 87–132; BP diastolic 44–90
[~2024-05-22 15:48] MED LIST changes: +BACTRIM DS1 TAB PO; +FARXIGA5 MG PO; +TRAZODONE HYDR150 MG PO
[2024-05-22] MEDS ORDERED: ONDANSETRON HCl 4 MG/2 ML SDV IV ONE (16:00)
[2024-05-22] MEDS ORDERED: SODIUM CHLORIDE 0.9% 1,000 ML IV ONE ×2 (16:00)
[2024-05-22 16:38] LABS: BASO% 0.2 % (0-3); EOS% 0.3 % (0-8); HEMATOCRIT 51.6 % (37.0-47.0); HEMOGLOBIN 18.1 g/dl (12.0-16.0); IMMATURE GRANULOCYTES 0.2 % (0.0-5.0); LYMPH% 27.1 % (15-41); MEAN CORPUSCULAR HGB 30.5 pG CALC (26.0-32.0); MEAN CORPUSCULAR HGB CONC 35.1 g/dL CAL (32.0-36.0); MONO% 4.9 % (2-13); NEUT# 10.95 thou/uL (2.00-7.15); NEUT% 67.3 % (42-76); RED BLOOD COUNT 5.93 mill/uL (4.20-5.60); RED CELL DISTRI WIDTH 12.9 % (11.5-15.5)
[2024-05-22 16:39] LABS: URINE BLOOD DIPSTICK Moderate (NEGATIVE); URINE GLUCOSE - DIPSTICK 100 mg/dL (NEGATIVE); URINE KETONE >=160 mg/dL (NEGATIVE); URINE LEUK ESTERASE Trace (NEGATIVE); URINE PH 5.5 (4.5-8.0); URINE PROTEIN - DIPSTICK 100 mg/dL (NEG-TRACE); URINE SPECIFIC GRAVITY >=1.030; URINE UROBILINOGEN - DIPSTICK 0.2 E.U./dL (0.2)
[2024-05-22 16:47] LABS: URINE COLOR Yellow; URINE NITRITE - DIPSTICK Positive (Negative)
[2024-05-22 16:49] LABS: URINE BACTERIA RARE hpf; URINE SQUAMOUS EPITHELIAL CELL FEW EPI/hpf (0-FEW)
[2024-05-22 17:03] LABS: ALBUMIN 4.9 g/dL (3.2-5.0); CREATININE 0.9 mg/dL (0.5-1.0); TOTAL PROTEIN 8.9 g/dL (6.3-8.2)
[2024-05-22 17:04] LABS: MAGNESIUM 1.8 mg/dL (1.6-2.3)
[2024-05-22] MEDS ORDERED: MOUNJARO5 MG (17:17)
[2024-05-22] MEDS ORDERED: BUPROPION HCL150 MG PO (17:18)
[2024-05-22] MEDS ORDERED: POTASSIUM CHLORIDE 10MEQ 50 ML IV ONE (17:45)
[2024-05-22] MEDS ORDERED: POTASSIUM CHLORIDE 20MEQ 100 ML IV ONE (18:15)
[2024-05-22] MEDS ORDERED: PROMETHAZINE HCL 25 MG/ML AMP IM ONE (18:15)
[2024-05-22] MEDS ORDERED: PROMETHAZINE HCL 25 MG/TAB PO ONE (20:30)
[2024-05-22] MEDS ORDERED: KETOROLAC TROMETHAMINE 30 MG/ML SDV IV ONE (20:30)
[2024-05-22] MEDS ORDERED: MECLIZINE HCL 25 MG/TAB PO ONE (20:30)
[2024-05-22] MEDS ORDERED: ACETAMINOPHEN 500 MG TAB PO ONE (20:30)
[2024-05-22] MEDS ORDERED: PROMETHAZINE HY25 M1 PO (20:32)
[2024-05-22] MEDS ORDERED: MECLIZINE25 MG PO (20:32)
[2024-05-22] MEDS ORDERED: POT CHLORIDE10 ME5 PO (20:32)
== END 2024-05-22 21:14 | disposition home or self-care (01) ==
LOC: ED 15:48
PROVIDERS: Family Medicine; Nurse Practitioner
DX: K52.9 Noninfective gastroenteritis and colitis, unspecified (principal); E86.0 Dehydration; F17.200 Nicotine dependence, unspecified, uncomplicated; E87.6 Hypokalemia; E11.9 Type 2 diabetes mellitus without complications; R82.71 Bacteriuria; Z79.85 Long-term (current) use of injectable non-insulin antidiabetic drugs
CPT/HCPCS: Q9967

== ENCOUNTER 2025-01-03 15:10 | Emergency (ER) | payer MEDICARE, OTHER ==
[~2025-01-03] VITALS: Ht 175.3 cm; Wt 68.0 kg
[2025-01-03] VITALS (7 sets, daily range): BP systolic 102–122; BP diastolic 70–83
[~2025-01-03 15:10] MED LIST changes: +DICYCLOMINE HYD10 MG PO; +MECLIZINE25 MG PO; +MOUNJARO5 MG; +POT CHLORIDE10 ME5 PO; +PROMETHAZINE HY25 M1 PO
[2025-01-03 16:00] LABS: BASO% 0.5 % (0-3); EOS% 0.8 % (0-8); HEMATOCRIT 44.8 % (37.0-47.0); HEMOGLOBIN 15.2 g/dl (12.0-16.0); IMMATURE GRANULOCYTES 0.5 % (0.0-5.0); LYMPH% 30.8 % (15-41); MEAN CELL VOLUME 91.4 fL CALC (80.0-100.0); MEAN CORPUSCULAR HGB CONC 33.9 g/dL CAL (32.0-36.0); MONO% 3.3 % (2-13); NEUT# 6.78 thou/uL (2.00-7.15); NEUT% 64.1 % (42-76); RED BLOOD COUNT 4.9 mill/uL (4.20-5.60); RED CELL DISTRI WIDTH 12.7 % (11.5-15.5)
[2025-01-03 16:00] LABS: URINE BILIRUBIN - DIPSTICK Negative (NEGATIVE); URINE BLOOD DIPSTICK Trace-lysed (NEGATIVE); URINE COLOR Yellow; URINE GLUCOSE - DIPSTICK Negative (NEGATIVE); URINE KETONE Negative (NEGATIVE); URINE LEUK ESTERASE Negative (NEGATIVE); URINE NITRITE - DIPSTICK Negative (Negative); URINE PROTEIN - DIPSTICK Negative (NEG-TRACE); URINE UROBILINOGEN - DIPSTICK 0.2 E.U./dL (0.2)
[2025-01-03 16:13] LABS: ALBUMIN 4.2 g/dL (3.2-5.0); BILIRUBIN, TOTAL 0.5 mg/dL (0.02-1.3); CREATININE 0.8 mg/dL (0.5-1.0); POTASSIUM 4.4 mmol/l (3.5-5.1); TOTAL PROTEIN 7.2 g/dL (6.3-8.2)
[2025-01-03] MEDS ORDERED: ORPHENADRINE CITRATE 30 MG/ML AMP IV ONE (17:20)
[2025-01-03] MEDS ORDERED: KETOROLAC TROMETHAMINE 30 MG/ML SDV IV ONE (17:20)
[2025-01-03] MEDS ORDERED: NAPROXEN500 MG PO (17:47)
[2025-01-03] MEDS ORDERED: METHOCARBAMOL500 MG PO (17:47)
== END 2025-01-03 18:10 | disposition home or self-care (01) ==
LOC: ED 15:10
PROVIDERS: Nurse Practitioner
DX: M54.50 Low back pain, unspecified (principal); E11.42 Type 2 diabetes mellitus with diabetic polyneuropathy; F17.200 Nicotine dependence, unspecified, uncomplicated
CPT/HCPCS: J2360; Q9967

== ENCOUNTER 2025-02-17 18:22 | Emergency (ER) | payer MEDICARE, OTHER ==
[~2025-02-17] VITALS: Ht 175.3 cm; Wt 68.0 kg
[~2025-02-17 18:22] MED LIST changes: +METHOCARBAMOL500 MG PO
[2025-02-17 18:31] VITALS: BP 120/67
[2025-02-17] MEDS ORDERED: IPRATROPIUM-Albuterol 0.5MG-2.5MG/3 ML NEB ONE ×2 (18:40)
[2025-02-17] MEDS ORDERED: methylPREDNISolone SODIUM SUCC 125 MG/2 ML SDV IV ONE (18:40)
[2025-02-17 18:45] VITALS: BP 97/74
[2025-02-17 18:58] LABS: BASO% 0.5 % (0-3); EOS% 0.3 % (0-8); HEMATOCRIT 40.2 % (37.0-47.0); HEMOGLOBIN 14.2 g/dl (12.0-16.0); IMMATURE GRANULOCYTES 0.2 % (0.0-5.0); LYMPH% 35.4 % (15-41); MEAN CELL VOLUME 88.2 fL CALC (80.0-100.0); MEAN CORPUSCULAR HGB 31.1 pG CALC (26.0-32.0); MEAN CORPUSCULAR HGB CONC 35.3 g/dL CAL (32.0-36.0); NEUT# 7.78 thou/uL (2.00-7.15); NEUT% 60.6 % (42-76); RED BLOOD COUNT 4.56 mill/uL (4.20-5.60); RED CELL DISTRI WIDTH 12.1 % (11.5-15.5)
[2025-02-17 19:00] VITALS: BP 112/74
[2025-02-17 19:08] VITALS: BP 128/74
[2025-02-17 19:10] LABS: ALBUMIN 4.1 g/dL (3.2-5.0); ALKALINE PHOSPHATASE 88 u/l (38-126); ANION GAP 12 (6-22 (CALC)); BILIRUBIN, TOTAL 0.4 mg/dL (0.02-1.3); BUN 18 mg/dL (7-17); BUN/CREATININE RATIO 20 (12-20 (CALC)); CARBON DIOXIDE 24 mmol/l (22-30); CHLORIDE 103 mmol/l (95-108); CREATININE 0.9 mg/dL (0.5-1.0); ESTIMATED GFR 78 ML/MIN (>=90 (CALC)); SGOT/AST 25 u/l (14-36); SODIUM 136 mmol/l (137-146); TOTAL PROTEIN 6.9 g/dL (6.3-8.2)
[2025-02-17 19:14] LABS: POTASSIUM 3.2 mmol/l (3.5-5.1)
[2025-02-17] MEDS ORDERED: VIBRAMYCIN100 M2 PO (19:30)
[2025-02-17] MEDS ORDERED: VENTOLIN HFA IN (19:30)
[2025-02-17] MEDS ORDERED: DOXYCYCLINE HYCLATE 100 MG/CAP PO ONE (19:35)
[2025-02-17 19:41] VITALS: BP 128/74
== END 2025-02-17 19:41 | disposition home or self-care (01) ==
LOC: ED 18:22
PROVIDERS: Family Medicine
DX: J44.1 Chronic obstructive pulmonary disease with (acute) exacerbation (principal); E11.9 Type 2 diabetes mellitus without complications; F17.200 Nicotine dependence, unspecified, uncomplicated; Z79.85 Long-term (current) use of injectable non-insulin antidiabetic drugs; Z20.822 Contact with and (suspected) exposure to COVID-19; R07.9 Chest pain, unspecified